=== PATIENT | male | born 1965 | race African-American/Black ===

== ENCOUNTER 2017-04-26 17:35 | Inpatient (IN) | payer OTHER ==
[~2017-04-26] VITALS: Ht 165.1 cm; Wt 70.8 kg
[2017-04-26 18:31] LABS: BASOPHIL COUNT 0.1 K/uL (0-0.1); EOSINOPHIL (%) 2.2 % (0-5); EOSINOPHIL COUNT 0.2 K/uL (0-0.3); HEMATOCRIT 53.6 % (38.0-50.0); IMMATURE GRANULOCYTE (%) 0.2 % (0.0-0.7); INSTRUMENT ABS NEUTROPHIL CT 4.2 K/uL; LYMPHOCYTE COUNT 3.4 K/uL (1.0-2.8); MCH 27.4 PG (29.0-34.0); MONOCYTE (%) 9.3 % (3-12); MONOCYTE COUNT 0.8 K/uL (0-0.8); NEUTROPHIL (%) 48.9 % (45-76); NEUTROPHIL COUNT 4.2 K/uL (1.8-6.4); PLATELET COUNT 213 K/uL (156-360); RBC DIS.WIDTH-CV 14.2 % (11.8-14.6); RBC DIS.WIDTH-SD 41.9 % (39-53); RED BLOOD COUNT 6.46 M/uL (4.00-5.50); WHITE BLOOD COUNT 8.6 K/uL (4.1-10.2)
[2017-04-26 18:45] LABS: D-DIMER ELISA < 150.00 ng/mLDDU (<230)
[2017-04-26 18:56] LABS: TROP-I INTERPRETATION POSITIVE
[2017-04-26 19:02] LABS: CHLORIDE 102 mEq/L (99-109); SODIUM 139 mEq/L (136-147)
[2017-04-26 19:04] LABS: GLUCOSE 84 mg/dL (70-99)
[2017-04-26 19:05] LABS: ANION GAP 17 MEQ/L (2-14)
[2017-04-26 19:06] LABS: TOTAL BILIRUBIN 0.8 mg/dL (0.0-1.0)
[2017-04-26 19:08] LABS: ALKALINE PHOSPHATASE 81 IU/L (3-129)
[2017-04-26 19:09] LABS: UREA NITROGEN (BUN) 8 mg/dL (9-23)
[2017-04-26 19:11] LABS: GFR ESTIMATE (CALCULATED) > 59 mL/min/; LIPASE 13 U/L (1.0-51.0)
[2017-04-26 19:25] LABS: INTER. NORMALIZED RATIO 1.1; PROTHROMBIN TIME 11.7 SEC (10.2-12.9)
[2017-04-26 19:28] LABS: PTT 39.6 SEC (25-37)
[2017-04-26] MEDS ORDERED: MOTRIN800 MG PO (20:40)
[2017-04-27] VITALS (21 sets, daily range): BP systolic 125–165; BP diastolic 74–133
[2017-04-27 01:43] LABS: TROP-I INTERPRETATION POSITIVE
[2017-04-27 01:44] LABS: TROPONIN-I 40.54 ng/mL (0.0-0.30)
[2017-04-27 03:23] LABS: AMPHETAMINES QUANT VALUE 0 NG/ML; BARBITUATES QUANT VALUE 0 NG/ML; BENZODIAZEPINES QUANT VALUE 0 NG/ML; BENZODIAZEPINES, URINE SCREEN Negative (200 ng/mL); PHENCYCLIDINE QUANT VALUE 0 NG/ML
[2017-04-27 08:04] LABS: HEMATOCRIT 48.2 % (38.0-50.0); MCH 27.2 PG (29.0-34.0); MCHC 32.2 G/DL (30.0-36.0); MCV 84.6 FL (86-99); MEAN PLAT.VOLUME 11.1 uM^3 (9.0-12.4); PLATELET COUNT 208 K/uL (156-360); RBC DIS.WIDTH-CV 14.5 % (11.8-14.6); RBC DIS.WIDTH-SD 44.2 % (39-53); WHITE BLOOD COUNT 8.7 K/uL (4.1-10.2)
[2017-04-27 08:13] LABS: ALKALINE PHOSPHATASE 65 IU/L (3-129); ANION GAP 7 MEQ/L (2-14); CHLORIDE 100 MEQ/L (99-109); GFR ESTIMATE (CALCULATED) > 59 mL/min/; GLUCOSE 101 mg/dL (70-99); POTASSIUM 4.5 MEQ/L (3.7-5.4); SAMPLE HEMOLYSIS CHECK 0; SAMPLE ICTERIC CHECK 0; SAMPLE LIPEMIA CHECK 0; SODIUM 135 MEQ/L (136-147); UREA NITROGEN (BUN) 10 mg/dL (9-23)
[2017-04-27 08:42] LABS: TROP-I INTERPRETATION POSITIVE; TROPONIN-I 48.56 ng/mL (0.0-0.30)
[2017-04-28 05:00] VITALS: BP 127/73
[2017-04-28 05:20] LABS: BASOPHIL COUNT 0.1 K/uL (0-0.1); EOSINOPHIL (%) 0.8 % (0-5); EOSINOPHIL COUNT 0.1 K/uL (0-0.3); HEMATOCRIT 44.7 % (38.0-50.0); IMMATURE GRANULOCYTE (%) 0.2 % (0.0-0.7); INSTRUMENT ABS NEUTROPHIL CT 7.3 K/uL; LYMPHOCYTE COUNT 2.5 K/uL (1.0-2.8); MCH 27.2 PG (29.0-34.0); MCHC 32.9 G/DL (30.0-36.0); MCV 82.8 FL (86-99); MEAN PLAT.VOLUME 11.5 uM^3 (9.0-12.4); MONOCYTE (%) 11.3 % (3-12); MONOCYTE COUNT 1.3 K/uL (0-0.8); NEUTROPHIL (%) 65.1 % (45-76); NEUTROPHIL COUNT 7.3 K/uL (1.8-6.4); PLATELET COUNT 177 K/uL (156-360); RBC DIS.WIDTH-CV 14.3 % (11.8-14.6); WHITE BLOOD COUNT 11.2 K/uL (4.1-10.2)
[2017-04-28 05:43] LABS: ANION GAP 9 MEQ/L (2-14); CHLORIDE 102 MEQ/L (99-109); GFR ESTIMATE (CALCULATED) > 59 mL/min/; GLUCOSE 86 mg/dL (70-99); POTASSIUM 3.8 MEQ/L (3.7-5.4); SAMPLE HEMOLYSIS CHECK 0; SAMPLE ICTERIC CHECK 0; SAMPLE LIPEMIA CHECK 0; SODIUM 135 MEQ/L (136-147); UREA NITROGEN (BUN) 10 mg/dL (9-23)
[2017-04-28 08:01] VITALS: BP 126/68
[2017-04-28] MEDS ORDERED: ASPIR-LOW81 MG PO (09:27)
[2017-04-28] MEDS ORDERED: ATORVASTATIN CA80 MG PO (09:27)
[2017-04-28] MEDS ORDERED: CLOPIDOGREL75 MG PO (09:27)
[2017-04-28] MEDS ORDERED: CARVEDILOL6.25 MG PO (09:27)
[2017-04-28] MEDS ORDERED: LISINOPRIL5 MG PO (09:27)
[2017-04-28] MEDS ORDERED: NICOTINE PATCH1 EAC2 TD (09:27)
== END 2017-04-28 15:01 | disposition home or self-care (01) | DRG 246 ==
LOC: EME 17:35 → EDOF 20:46 → 4EAST 20:46 → ENRESERV 20:49 → 4EAST 23:47
PROVIDERS: Emergency Medicine; Internal Medicine; Internal Medicine Cardiovascular Disease
DX: I21.4 Non-ST elevation (NSTEMI) myocardial infarction (principal); J18.9 Pneumonia, unspecified organism; I16.0 Hypertensive urgency; I10 Essential (primary) hypertension; I42.9 Cardiomyopathy, unspecified; I25.110 Atherosclerotic heart disease of native coronary artery with unstable angina pectoris; I25.84 Coronary atherosclerosis due to calcified coronary lesion; I70.0 Atherosclerosis of aorta; I49.3 Ventricular premature depolarization; I77.810 Thoracic aortic ectasia; E78.00 Pure hypercholesterolemia, unspecified; K29.70 Gastritis, unspecified, without bleeding; N20.0 Calculus of kidney; Z91.14 Patient's other noncompliance with medication regimen; F12.10 Cannabis abuse, uncomplicated; F17.200 Nicotine dependence, unspecified, uncomplicated
CPT/HCPCS: 71010; 71275; 74177; 80048; 80053; 80306 90; 83690; 84484; 85025; 85027; 85347; 85379; 85610; 85730; 93005; 99281; 99284; C1725; C1769; C1874; C1887; C9113; J1644; J2250; J2270; J3010; J7030; J7040

== ENCOUNTER 2017-05-05 14:47 | Observation (INO) | payer OTHER ==
[~2017-05-05] VITALS: Ht 165.1 cm; Wt 67.7 kg
[~2017-05-05 14:47] MED LIST: ASPIR-LOW81 MG PO; ATORVASTATIN CA80 MG PO; CARVEDILOL6.25 MG PO; CLOPIDOGREL75 MG PO; LISINOPRIL5 MG PO; MOTRIN800 MG PO; NICOTINE PATCH1 EAC2 TD
[2017-05-05 17:07] LABS: HEMATOCRIT 44.1 % (38.0-50.0); MCH 27.8 PG (29.0-34.0); MCHC 32.9 G/DL (30.0-36.0); MCV 84.6 FL (86-99); RBC DIS.WIDTH-CV 13.7 % (11.8-14.6); RBC DIS.WIDTH-SD 42.6 % (39-53); RED BLOOD COUNT 5.21 M/uL (4.00-5.50); WHITE BLOOD COUNT 6.8 K/uL (4.1-10.2)
[2017-05-05 17:08] LABS: INTER. NORMALIZED RATIO 1.2; PROTHROMBIN TIME 13.1 SEC (10.2-12.9)
[2017-05-05 17:21] LABS: CHLORIDE 105 mEq/L (99-109); POTASSIUM 4.4 mEq/L (3.7-5.4); SODIUM 141 mEq/L (136-147)
[2017-05-05 17:23] LABS: GLUCOSE 83 mg/dL (70-99)
[2017-05-05 17:24] LABS: ANION GAP 11 MEQ/L (2-14)
[2017-05-05 17:25] LABS: TOTAL BILIRUBIN 0.4 mg/dL (0.0-1.0)
[2017-05-05 17:27] LABS: ALKALINE PHOSPHATASE 62 IU/L (3-129); GFR ESTIMATE (CALCULATED) > 59 mL/min/; PTT 39.2 SEC (25-37)
[2017-05-05 17:28] LABS: UREA NITROGEN (BUN) 16 mg/dL (9-23)
[2017-05-05 17:29] LABS: DIRECT BILIRUBIN 0.2 mg/dL (0.0-0.3)
[2017-05-05 17:30] LABS: TROP-I INTERPRETATION POSITIVE
[2017-05-05 18:00] LABS: ANISOCYTOSIS 1+; BASOPHIL COUNT 0.1 K/uL (0-0.1); BURR CELLS 2+; EOSINOPHIL (%) 4.1 % (0-5); EOSINOPHIL COUNT 0.3 K/uL (0-0.3); IMMATURE GRANULOCYTE (%) 0.1 % (0.0-0.7); INSTRUMENT ABS NEUTROPHIL CT 3.3 K/uL; LYMPHOCYTE COUNT 2.3 K/uL (1.0-2.8); MACROCYTES 1+; MEAN PLAT.VOLUME 11.2 uM^3 (9.0-12.4); MONOCYTE (%) 13.2 % (3-12); MONOCYTE COUNT 0.9 K/uL (0-0.8); NEUTROPHIL (%) 48.5 % (45-76); NEUTROPHIL COUNT 3.3 K/uL (1.8-6.4); PLAT.SUFFICIENCY ADEQUATE; POIKILOCYTOSIS 2+
[2017-05-05 18:01] LABS: TROPONIN-I 8.06 ng/mL (0.0-0.30)
[2017-05-05 18:07] LABS: PLATELET COUNT 278 K/uL (156-360)
[2017-05-05] MEDS ORDERED: ZESTRIL5 MG PO (19:32)
[2017-05-05] MEDS ORDERED: LO-DOSE ASPIRIN81 M2 PO (19:33)
[2017-05-05] MEDS ORDERED: PLAVIX75 MG PO (21:27)
[2017-05-05 22:18] VITALS: BP 139/87
[2017-05-06] VITALS: BP 119/78
[2017-05-06 03:30] VITALS: BP 109/653
[2017-05-06 08:42] VITALS: BP 130/76
[2017-05-06 11:29] VITALS: BP 134/80
[2017-05-06 11:45] LABS: TROPONIN-I 3.76 ng/mL (0.0-0.30)
[2017-05-06 11:46] LABS: TROP-I INTERPRETATION POSITIVE
[2017-05-06] MEDS ORDERED: PEPCID20 MG PO (12:31)
[2017-05-06] MEDS ORDERED: MEDROL DOSEPAK4 MG PO (12:31)
== END 2017-05-06 18:21 | disposition home or self-care (01) ==
LOC: EME 14:47 → EDOF 20:35 → 5WEST 20:35 → EDOF 20:35 → ENRESERV 20:37 → 5WEST 21:54
PROVIDERS: Emergency Medicine; Hospitalist
DX: T78.3XXA Angioneurotic edema, initial encounter (principal); I25.10 Atherosclerotic heart disease of native coronary artery without angina pectoris; Z95.5 Presence of coronary angioplasty implant and graft; I42.9 Cardiomyopathy, unspecified; I10 Essential (primary) hypertension; I21.4 Non-ST elevation (NSTEMI) myocardial infarction; F17.200 Nicotine dependence, unspecified, uncomplicated; E78.5 Hyperlipidemia, unspecified; Z79.82 Long term (current) use of aspirin; K21.9 Gastro-esophageal reflux disease without esophagitis
CPT/HCPCS: 80048; 80076; 83605; 84484; 85025; 85610; 85730; 93005; 99281; 99285; G0378; J1100; J1200; J2930; S0028